=== PATIENT | female | born 1995 | race Caucasian/White ===

== ENCOUNTER 2016-11-23 17:52 | Emergency (ER) | payer SELFPAY ==
[~2016-11-23 17:52] MED LIST: COLD MEDICINE; PREDNISONE10 M1 PO; PROAIR HFA8.5 GM IH; PROMETHAZINE-C118 ML PO; ZYRTEC1010 PO
[2016-11-23] MEDS ORDERED: VENTOLIN HFA18 G2 (20:36)
[2016-11-23] MEDS ORDERED: PREDNISONE20 M1 PO (21:22)
[2016-11-23] MEDS ORDERED: PROVENTIL HFA6.7 G1 (21:22)
[2016-11-23] MEDS ORDERED: AZITHROMYCIN250 M1 PO (21:22)
== END 2016-11-23 21:34 ==
LOC: EDMED 17:52
DX: J45.901 Unspecified asthma with (acute) exacerbation (principal); J20.9 Acute bronchitis, unspecified; Z79.51 Long term (current) use of inhaled steroids; F17.200 Nicotine dependence, unspecified, uncomplicated